=== PATIENT | male | born 1955 | race Caucasian/White ===

== ENCOUNTER 2017-06-22 14:49 | Inpatient (IN) | payer OTHER, MEDICARE ==
[~2017-06-22] VITALS: Ht 195.6 cm; Wt 135.0 kg
[2017-06-22] VITALS (12 sets, daily range): BP systolic 44–145; BP diastolic 23–106
[2017-06-22 15:18] LABS: HCO3 12.1 mmol/L (22.0-26.0); PO2 104.3 mmHg (75.0-100.0)
[2017-06-22 15:20] LABS: PCO2 79.9 mmHg (35.0-45.0); pH 6.799 (7.340-7.450)
[2017-06-22 15:24] LABS: HEMATOCRIT 45.3 % (42.0-52.0); MCV 98.1 fL (80.0-100.0); NUCLEATED RBCS 0 /100WBC; RBC 4.62 mil/uL (4.50-6.00); RDW-CV 13.4 % (10.5-14.5)
[2017-06-22 15:25] LABS: HEMOGLOBIN 14.9 gm/dL (14.0-18.0); MCH 32.3 pg (26.0-34.0); MCHC 32.9 g/dL (28.0-37.0); MPV 8.4 fl. (7.2-11.1); PLATELET COUNT* 187 thou/uL (150-400); WBC 7.8 thou/uL (4.0-11.0)
[2017-06-22 15:28] LABS: APTT 40.1 Seconds (25.0-31.3); INR 1.2; PROTIME 12.1 Seconds (9.20-11.50)
[2017-06-22 15:30] LABS: ANION GAP 20 mmol/L (7-16); BUN 26 mg/dL (7-18); CALCIUM 8.6 mg/dL (8.5-10.1); CHLORIDE 101 mmol/L (98-107); CO2 21 mmol/L (21-32); CREATININE 1.8 mg/dL (0.6-1.3); GLUCOSE 256 mg/dL (70-99); POTASSIUM 3.3 mmol/L (3.5-5.1); SODIUM 142 mmol/L (136-145)
[2017-06-22 15:36] LABS: ALBUMIN 3.2 g/dL (3.4-5.0); ALKALINE PHOSPHATASE 89 U/L (46-116); CHOLESTEROL 118 mg/dL (<200); HDL CHOLESTEROL 38 mg/dL (>40); LDL CHOLESTEROL 50 mg/dL (<100); MAGNESIUM 2.7 mg/dL (1.8-2.4); SGOT 250 U/L (15-37); SGPT 125 U/L (30-65); TC:HDL 3.1 Ratio (Not establshd); TOTAL BILIRUBIN 0.5 mg/dL (<0.1-1.0); TOTAL PROTEIN 6.7 g/dL (6.4-8.2); TRIGLYCERIDE 153 mg/dL (<150); VLDL 31 mg/dL (<40)
[2017-06-22 15:39] LABS: TROPONIN-I LEVEL 18.03 ng/mL (<0.06)
[2017-06-22 15:40] LABS: SERUM ASSESSMENT Clear
[2017-06-22 15:44] LABS: ABSOLUTE LYMPHOCYTES 3.3 thou/uL (0.8-5.3); ABSOLUTE MONOCYTES 1.1 thou/uL (0.0-1.2); ABSOLUTE NEUTROPHILS 3.4 thou/uL (1.6-8.1); ATYPICAL LYMPHS 1 %; LARGE PLATELETS OCCASIONAL; PLATELET ESTIMATE ADEQUATE
--- NOTE | 2017-06-22 15:51 | NUR ---
CODE ICE PROTOCOL STARTED AT THIS TIME.
--- NOTE | 2017-06-22 16:07 | NUR ---
EPI GTT STARTED AT 1530 AT 5MCG/MIN.
--- NOTE | 2017-06-22 16:43 | EKG ---
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 : 1955 Requested By: Daron Terrazas Order Number: [id number] MD: Mp Stone Measurements Intervals [place] Rate: 83 P: -25 MO: 159 QRS: 116 QRSD: 112 T: 95 QT: 368 QTc: 433 Interpretive Statements Sinus rhythm Incomplete right bundle branch block Inferior infarct, acute (RCA) Lateral leads are also involved Probable RV involvement, suggest recording right precordial leads No previous ECG available for comparison Electronically Signed On 06-22-2017 16:43:26 CDT by Mp Stone [email or web address] <ELECTRONICALLY SIGNED> By: Mp Stone MD, [facility] 06/22/17 1643 1454 1454 Mp Stone MD, [facility] /EPI
[2017-06-22 17:47] LABS: URINE BILIRUBIN NEGATIVE (Negative); URINE BLOOD 3+ (Negative); URINE CLARITY SL CLOUDY; URINE COLOR YELLOW; URINE GLUCOSE-RANDOM 1+ (Negative); URINE KETONES NEGATIVE (Negative); URINE LEUKOCYTES-REFLEX TRACE (Negative); URINE NITRITE-REFLEX NEGATIVE (Negative); URINE PROTEIN 3+ (Negative); URINE SPECIFIC GRAVITY 1.025 (1.005-1.030); URINE UROBILINOGEN 0.2 E.U./dl (0.2-1.0)
[2017-06-22 17:58] LABS: MUCUS 0-3 Light strn/LPF (None Seen); SQUAMOUS 0-3 Few /LPF (0-3); URINE WBC-REFLEX 6-15 Few /HPF (0-5)
[2017-06-22 17:59] LABS: AMORPHOUS PHOSPHATES Few /LPF (None Seen); HYALINE CASTS 0-3 Few /LPF (None Seen); WAXY CAST 0-3 Few /LPF (None Seen)
--- NOTE | 2017-06-22 18:47 | NUR ---
RECEIVED PT FROM ER. PT ON VENTILATOR. VENT SETTINGS: AC 16, FIO2 100, PEEP 5, TITAL VOLUME 750. PT COOL TO TOUCH. PUPILS 5CM AND FIXED. NO RESPONSE TO PAIN OR STIMULI. CODE ICE IN PRCOCESS. PT'S SYSTOLIC BP'S IN 130'S. TRACING SR WITH PVCS. EPI GTT DC'D PER ORDERS. FLUID BOLUS INFUSING. ANTIBIOTICS INFUSING. LEVO GTT HELD AT MOMENT PT'S BP'S MAINTAINING. MAP 100. SPOKE TO PULMONARY RECEIVED ORDERS.
[2017-06-22 18:51] LABS: BE -12.8 mmol/L (-2 to +3); HCO3 17.8 mmol/L (22.0-26.0); PO2 115.4 mmHg (75.0-100.0)
[2017-06-22 18:54] LABS: PCO2 60.2 mmHg (35.0-45.0); pH 7.088 (7.340-7.450)
--- NOTE | 2017-06-22 22:10 | NUR ---
SIGNIFICANT LEAK AROUND ETT CUFF CAUSING NEED TO OVERINFLATE CUFF TO MAINTAIN SEAL. PER DR THAO CHILDS FROM ER ON UNIT TO REPLACE ETT. AT 2200 AN 8.0 ETT WAS PLACED, POSITIONED 24CM @ LIP. PLACEMENT CONFIRMED VIA XRAY. OG REPOSITIONED AT THAT TIME TO 75CM ORIGINAL KUB SHOWED IT ABOVE STOMACH. FOLLOW UP KUB RECOMMENDED ADVANCING OG AN ADDITIONAL 3CM. OG CURRENTLY 78CM AT THE LIP, TAPED TO ETT.
[2017-06-23] VITALS (14 sets, daily range): BP systolic 94–147; BP diastolic 64–110
[2017-06-23 00:47] LABS: HEMATOCRIT 46.3 % (42.0-52.0); HEMOGLOBIN 15.1 gm/dL (14.0-18.0); MCHC 32.5 g/dL (28.0-37.0); MCV 98.4 fL (80.0-100.0); MPV 7.6 fl. (7.2-11.1); NUCLEATED RBCS 0 /100WBC; PLATELET COUNT* 212 thou/uL (150-400); RDW-CV 13.5 % (10.5-14.5)
[2017-06-23 00:49] LABS: WBC 28.9 thou/uL (4.0-11.0)
[2017-06-23 00:59] LABS: INR 1.3; PROTIME 13.4 Seconds (9.20-11.50)
[2017-06-23 01:01] LABS: CREATININE 1.9 mg/dL (0.6-1.3); MAGNESIUM 2.1 mg/dL (1.8-2.4); POTASSIUM 3.8 mmol/L (3.5-5.1)
[2017-06-23 01:12] LABS: PHOSPHORUS* 9.5 mg/dL (2.5-4.9)
[2017-06-23 01:30] LABS: ABSOLUTE LYMPHOCYTES 0.6 thou/uL (0.8-5.3); ABSOLUTE MONOCYTES 0.6 thou/uL (0.0-1.2); ABSOLUTE NEUTROPHILS 27.7 thou/uL (1.6-8.1); METAMYELOCYTES 1 %; PLATELET ESTIMATE ADEQUATE
[2017-06-23 01:31] LABS: LARGE PLATELETS OCCASIONAL; TOXIC GRANULATION 2+
[2017-06-23 01:32] LABS: ANISOCYTOSIS Occasional
--- NOTE | 2017-06-23 02:00 | NUR ---
ASSUMED PT CARE AT 1930, SEE REASSESSMENT. PUPILS FIXED AND DILATED, NO PAIN RESPONSE OR CORNEAL REFLEX. ARRIVED SHORTLY AFTER 1999 AND ADDITIONAL HISTORY INFORMATION OBTAINED. PT NOTED TO BE OVERBREATHING VENT SET RATE OF 16, RR 25-30, AND USING ACCESSORY MUSCLES DURING INHALATION GIVING THE OF GASPING @ 2100. PROPOFOL GTT INITIATED AT 2130 IN ATTEMPT TO DECREASE RR AND GASPING. APPROXIMATELY 2150 PT BECAME HYPOTENSIVE, LEVOPHED GTT INITIATED AND TITRATED TO MAX DOSE OF 30MCG/MIN. EPINEPHRINE GTT ADDED AT 2240 AND BP NORMALIZED. PROPOFOL GTT USED AT MINIMAL DOSAGE WHICH DID DECREASE RR AND ACCESSORY MUSCLE USE, LATER VERSED GTT OBTAINED AND WAS TITRATED THOUGH IT HAS BEEN LESS EFFECTIVE.
--- NOTE | 2017-06-23 03:01 | NUR ---
SPOKE TO DR TORRES ABOUT DROP IN CALCIUM LEVEL, REPLACEMENT ORDERED. DISCUSSED WITH HIM THAT SEDATION HAD BEEN INITIATED DUE TO RR OF 27-30, HOWEVER PROPOFOL HAD DROPPED BP AND VERSED GTT HAD NOT IMPROVED RR. PER DR TORRES, CALL PLACED TO DR HUBBARD TO NOTIFY OF THIS AND ASK IF FURTHER SEDATION WAS NEEDED. DR HUBBARD INSTRUCTED THAT OVERBREATHING VENT AT THIS POINT IS OK AND THAT VERSED GTT CAN BE TITRATED DOWN OR OFF IF PT REMAINS NON RESPONSIVE. VERSED GTT CURRENTLY AT 1MG/HR, RR 23 AND MILD HEAD EXTENSION NOTED WITH EACH BREATH. OTHERWISE PT IS MOTIONLESS, NO RESPONSE TO PAINFUL STIMULI. PUPILS SMALL THEN PREVIOUS ASSESSMENTS, CURRENTLY 4MM AND MINIMALLY REACTIVE TO LIGHT.
[2017-06-23 03:44] LABS: BE -18.3 mmol/L (-2 to +3); HCO3 12.3 mmol/L (22.0-26.0); PCO2 46.9 mmHg (35.0-45.0); PO2 67.5 mmHg (75.0-100.0)
[2017-06-23 03:46] LABS: pH 7.038 (7.340-7.450)
--- NOTE | 2017-06-23 04:10 | NUR ---
PT DESATING TO MID 80'S, NO CHANGE WITH REPOSITIONING AND SUCTIONING OF ETT. IV LASIX 40MG GIVEN @ 0115 DUE TO COARSE LUNG SOUNDS, UO 350ML SINCE GIVEN. STAT CXR AND ABG'S OBTAINED, CALLED TO DR HUBBARD. ORDER RECEIVED TO INCREASE PEEP TO 8, RT ON UNIT AND INFORMED. ORDER FOR BICARB REPLACEMENT RECEIVED.
[2017-06-23 04:15] LABS: ABSOLUTE BASOPHILS 0.1 thou/uL (0.0-0.2); ABSOLUTE LYMPHOCYTES 0.6 thou/uL (0.8-5.3); ABSOLUTE MONOCYTES 0.8 thou/uL (0.0-1.2); ABSOLUTE NEUTROPHILS 27.9 thou/uL (1.6-8.1); BASOPHILS 0.2 %; HEMATOCRIT 46.3 % (42.0-52.0); HEMOGLOBIN 15.2 gm/dL (14.0-18.0); LYMPHOCYTES 2.1 %; MCH 31.8 pg (26.0-34.0); MCHC 32.8 g/dL (28.0-37.0); MCV 97.2 fL (80.0-100.0); MONOCYTES 2.7 %; MPV 7.6 fl. (7.2-11.1); NUCLEATED RBCS 0 /100WBC; PLATELET COUNT* 213 thou/uL (150-400); RBC 4.76 mil/uL (4.50-6.00); RDW-CV 13.4 % (10.5-14.5); WBC 29.4 thou/uL (4.0-11.0)
[2017-06-23 04:44] LABS: ALBUMIN 2.9 g/dL (3.4-5.0); POTASSIUM 3.7 mmol/L (3.5-5.1); TOTAL BILIRUBIN 0.9 mg/dL (<0.1-1.0); TOTAL PROTEIN 6.2 g/dL (6.4-8.2)
--- NOTE | 2017-06-23 04:59 | NUR ---
[facility] CALLED- REF#[id number] REQUESTED THAT RN CALL WITH ANY CHANGES TO STATUS OR PLAN OF CARE.
[2017-06-23 05:21] LABS: TROPONIN-I LEVEL 65.21 ng/mL (<0.06)
--- NOTE | 2017-06-23 06:34 | NUR ---
PT REMAINS NON RESPONSIVE ON VENTILATOR. PRESSORS AND VERSED TITRATED OFF APPROXIMATELY 0430. PT CURRENTLY NORMOTENSIVE. CONTINUES TO SHOW USE OF ACCESSORY MUSCLES. NO PAIN RESPONSE OR CORNEAL REFLEX, DEEP GAG REFLEX INTACT, PT COUGHS WHEN DEEP INLINE SUCTIONING. PUPILS REMAIN 4MM, VERY SLUGGISH BUT WHEN LIGHT IS HELD TO PUPILS FOR SEVERAL SECONDS THEY WILL NOTICABLY CONSTRICT TO APPROXIMATELY 3MM. SCD'S OFF AT THIS TIME DUE TO CODE ICE. TARGET TEMP OF 91.4F OBTAINED AT 2044, THOUGH IT HAS FLUCTUATED SLIGHTLY ABOVE INTERMITTENTLY. PT HAS BEEN TURNED Q2HR.
[2017-06-23 10:48] LABS: HCO3 21.7 mmol/L (22.0-26.0); PCO2 83.1 mmHg (35.0-45.0); PO2 84.1 mmHg (75.0-100.0); pH 7.035 (7.340-7.450)
[2017-06-23 11:00] LABS: ABSOLUTE BASOPHILS 0.1 thou/uL (0.0-0.2); ABSOLUTE LYMPHOCYTES 0.7 thou/uL (0.8-5.3); ABSOLUTE MONOCYTES 0.8 thou/uL (0.0-1.2); ABSOLUTE NEUTROPHILS 20.4 thou/uL (1.6-8.1); BASOPHILS 0.4 %; HEMOGLOBIN 14.8 gm/dL (14.0-18.0); LYMPHOCYTES 3.2 %; MCH 31.8 pg (26.0-34.0); MCHC 32.9 g/dL (28.0-37.0); MCV 96.8 fL (80.0-100.0); MONOCYTES 3.5 %; MPV 7.6 fl. (7.2-11.1); NUCLEATED RBCS 0 /100WBC; PLATELET COUNT* 182 thou/uL (150-400); POLYS 92.9 %; RBC 4.65 mil/uL (4.50-6.00)
[2017-06-23 11:06] LABS: CREATININE 2.3 mg/dL (0.6-1.3); POTASSIUM 3.5 mmol/L (3.5-5.1)
[2017-06-23 11:16] LABS: ALBUMIN 2.6 g/dL (3.4-5.0); PHOSPHORUS* 8.5 mg/dL (2.5-4.9); TOTAL BILIRUBIN 0.7 mg/dL (<0.1-1.0); TOTAL PROTEIN 5.7 g/dL (6.4-8.2)
[2017-06-23 12:11] LABS: BE -13.2 mmol/L (-2 to +3); HCO3 17.3 mmol/L (22.0-26.0); PO2 74.6 mmHg (75.0-100.0)
[2017-06-23 12:12] LABS: PCO2 58.2 mmHg (35.0-45.0)
[2017-06-23 17:10] LABS: BE -11.6 mmol/L (-2 to +3); HCO3 17.8 mmol/L (22.0-26.0)
[2017-06-23 17:11] LABS: PCO2 53.7 mmHg (35.0-45.0); pH 7.139 (7.340-7.450)
--- NOTE | 2017-06-23 17:24 | 2DMMODE ---
[place] [address] 2 D/M-MODE ECHOCARDIOGRAM Name: SARAI MEJIA Room: [address] IN [facility]#: [id number] Admission: 06/22/17 Attend Phys: Donte Cabrera, Discharge: Date of : 57 Date of Service: 06/23/17 1724 Report #: [id number] THIS REPORT FOR: //name// APPROVED REPORT Study performed: 06/23/2017 09:58:40 EXAM: Comprehensive 2D, Doppler, and color-flow Echocardiogram Patient Location: In-Patient Room #: 006 Status: routine BSA: 2.36 HR: 67 bpm BP: 127/74 mmHg Rhythm: NSR Other Information Study Quality: Good Indications cardiac arrrest 2D Dimensions LVEF(%): 75.63 (>50%) IVSd: 10.20 (7-11mm) LVOT Diam: 19.88 (18-24mm) LVDd: 31.45 mm PWd: 9.72 (7-11mm) LVDs: 17.89 (25-40mm) Aortic Root: 41.22 mm White's LVEF: 75.63 % Aortic Valve AoV Peak Kp.: 0.90 m/s AO Peak Gr.: 3.23 mmHg LVOT Max P.14 mmHg AO Mean Gr.: 1.80 mmHg LVOT Mean P.01 mmHg LVOT Max V: 1.02 m/s AO V2 VTI: 11.05 cm LVOT Mean V: 0.65 m/s RYAN (VTI): 4.22 cm2 LVOT V1 VTI: 15.04 cm Mitral Valve E/A Ratio: 0.78 MV Decel. Time: 256.92 ms MV E Max Kp.: 0.41 m/s MV PHT: 74.51 ms MVA (PHT): 2.95 cm2 [place] [address] 2 D/M-MODE ECHOCARDIOGRAM Name: SARAI MEJIA Room: [address] IN .R.#: [id number] Admission: 06/22/17 Attend Phys: Donte Cabrera, Discharge: Date of : 57 Date of Service: 06/23/17 1724 Report #: [id number] TDI E/Lateral E': 5.13 E/Medial E': 5.86 Medial E' Kp.: 0.07 m/s Lateral E' Kp.: 0.08 m/s Tricuspid Valve TR Peak Gr.: 23.43 mmHg RVSP: 28.00 mmHg Left Ventricle The left ventricle is normal size. There is normal LV segmental wall motion. There is normal left ventricular wall thickness. Left ventricular systolic function is normal. The left ventricular ejection fraction is within the normal range. LVEF is 55%. Right Ventricle Right ventricle is mild to moderately dilated. The right ventricular systolic function is normal. Atria The left atrium size is normal. Right atrium is moderately dilated. Aortic Valve Mild aortic valve sclerosis. No aortic regurgitation is present. There is no aortic valvular stenosis. Mitral Valve The mitral valve is normal in structure. There is no mitral valve regurgitation noted. No evidence of mitral valve stenosis. Tricuspid Valve The tricuspid valve is normal in structure. There is no tricuspid valve regurgitation noted. Pulmonic Valve The pulmonary valve is normal in structure. There is no pulmonic valvular regurgitation. Great Vessels The aortic root is normal in size. IVC is dilated and collapses <50% with inspiration. Pericardium There is no peric[place] [address] 2 D/M-MODE ECHOCARDIOGRAM Name: SARAI MEJIA Room: [address] IN [facility]#: [id number] Admission: 06/22/17 Attend Phys: Donte Cabrera, Discharge: Date of : 57 Date of Service: 06/23/17 1724 Report #: [id number] <Conclusion> There is normal left ventricular wall thickness. Left ventricular systolic function is normal. The left ventricular ejection fraction is within the normal range. LVEF is 55%. Right ventricle is mild to moderately dilated. The left atrium size is normal. Right atrium is moderately dilated. Mild aortic valve sclerosis. No aortic regurgitation is present. There is no aortic valvular stenosis. The mitral valve is normal in structure. There is no mitral valve regurgitation noted. The tricuspid valve is normal in structure. IVC is dilated and collapses <50% with inspiration. There is no pericardial effusion. There is normal LV segmental wall motion. <ELECTRONICALLY SIGNED> By: Mp Stone MD, FACC 06/23/171723 23 23 Mp Stone MD, FACC /INF
--- NOTE | 2017-06-23 19:43 | NUR ---
RECIEVED REPORT FROM [facility]. ASSESMENTS CHARTED. AFEBRILE. CODE ICE. NON RESPONSIVE. REWARMING BEGAN AROUND 1500. LEVO STARTED AND THEN STOPPED THIS AFTERNOON. STILL INTUBATED. CALLED PHYSICAN ABOUT CHANGE IN LUNG SOUNDS. NO ORDERS GIVEN. LOW URINE OUTPUT. OG TO LIS. SODIUM BICARB GTT. FENTNANYL AND VERSED GTT INFUSING PER ICU PROTOCOL. ANTIBIOTICS GIVEN. ECHO TODAY. NEURO SAW PT. NEPHRO AND ID CONSULTED AND CALLED. FAMILY UPDATED ON PLAN OF CARE.
[2017-06-24] VITALS (14 sets, daily range): BP systolic 82–113; BP diastolic 51–75
[2017-06-24 02:48] LABS: ABSOLUTE LYMPHOCYTES 0.5 thou/uL (0.8-5.3); ABSOLUTE MONOCYTES 0.3 thou/uL (0.0-1.2); ABSOLUTE NEUTROPHILS 12.1 thou/uL (1.6-8.1); BASOPHILS 0.2 %; HEMATOCRIT 42.2 % (42.0-52.0); HEMOGLOBIN 14.1 gm/dL (14.0-18.0); MCH 31.7 pg (26.0-34.0); MCHC 33.5 g/dL (28.0-37.0); MCV 94.7 fL (80.0-100.0); MONOCYTES 2.4 %; MPV 7.6 fl. (7.2-11.1); NUCLEATED RBCS 0 /100WBC; PLATELET COUNT* 118 thou/uL (150-400); POLYS 93.4 %; RBC 4.45 mil/uL (4.50-6.00); WBC 12.9 thou/uL (4.0-11.0)
[2017-06-24 03:01] LABS: PREALBUMIN 15.5 mg/dL (18.0-35.7)
[2017-06-24 03:13] LABS: ALBUMIN 2.5 g/dL (3.4-5.0); CALCIUM 6.9 mg/dL (8.5-10.1); MAGNESIUM 1.7 mg/dL (1.8-2.4); POTASSIUM 3.7 mmol/L (3.5-5.1); TOTAL PROTEIN 5.4 g/dL (6.4-8.2)
--- NOTE | 2017-06-24 07:20 | NUR ---
PT REMAINS NON RESPONSIVE ON VENTILATOR. COUGH REFLEX INTACT, NO GAG OR CORNEAL REFLEX DETECTED. LEVOPHED GTT TITRATED TO MAINTAIN MAP >65. VERSED AND FENTANYL GTTS TITRATED TO PROMOTE VENTILATOR EFFICACY. PARTIAL BED BATH GIVEN, NO REDNESS NOTED TO COCCYX OR BUTTOCKS. PT REWARMED, GOAL TEMP OF 97.7 OBTAINED AT 0400, THOUGH TEMP HAS FLUCTUATED BETWEEN 96.6 AND 97.7 SINCE THAT TIME. PT HAS BEEN TURNED Q2HR THROUGHOUT THE SHIFT.
[2017-06-24 07:59] LABS: BE -7.9 mmol/L (-2 to +3); HCO3 20.1 mmol/L (22.0-26.0); PCO2 50.5 mmHg (35.0-45.0); PO2 66.7 mmHg (75.0-100.0); pH 7.217 (7.340-7.450)
--- NOTE | 2017-06-24 08:00 | NUR ---
Assumed care of patient remains on vent temp returning to normal range. decreasing sedation and pressor. See flow sheet.
--- NOTE | 2017-06-24 10:54 | NUR ---
CM SPOKE TO THE PATIENTS SPOUSE AT THE BEDSIDE TO DISCUSS THE PATIENT AND ANY QUESTIONS OR CONCERNS THAT SHE MAY HAVE. PATIENTS SPOUSE INFOMRS THAT PRIOR TO ADMISSION PATIENT WAS INDEPENDENT AND ACTIVE. PATIENT HAS A LONG HEALTH HX AND HAS HAD 3 BRAIN SURGERIES IN THE PAST AND HAD PREVIOUSLY MENTIONED 'NEVER HAVING SURGERY AGAIN'. PATIENT WAS A HEAVY SMOKER OF 2 PACKS PER DAY, AND DRANK ALCOHOL DAILY. USUALLY 2-6 CANS OF BEER DAILY. PATIENTS SPOUSE INFORMS THAT THE PATIENT WILL HAVE AN EGD TODAY AND SHE WILL DISCUSS WITH EXTENDED FAMILY MEMBERS ABOUT THE NEXTS STEPS IN THE PATIENTS POC. CM WILL REMAIN AVAILABLE TO ASSIST AND FOLLOW NEEDED.
--- NOTE | 2017-06-24 12:21 | NUR ---
ICU ROUNDING: CM SPOKE TO THE RN IN-CHARGE OF THE PATIENT AND HE INFORMS THAT THE PATIENT IS REWARMING. PATIENT NOT PRODUCING URINE. PATIENT SCHEDULED TO HAVE AN EGD TODAY. PATIENTS SPOUSE CURRENTLY AT THE BEDSIDE. CM WILL REMAIN AVIALABLE TO ASSIST AND FOLLOW NEEDED.
--- NOTE | 2017-06-24 13:42 | CON ---
[facility] [address] [place] [address] CONSULTATION Name: SARAI MEJIA Room: [address] IN M.R.#: [id number] Admission: 06/22/17 Attend Phys: Donte Cabrera MD Discharge: Date of : 57 Report #: [id number] THIS REPORT FOR: //name// CC: [facility] DATE OF SERVICE: 06/23/2017 Consult has been requested by Dr. Cabrera. INDICATION FOR CONSULTATION: Acute hypoxemic respiratory failure secondary to cardiac arrest. HISTORY OF PRESENT ILLNESS: This is a 62-year-old gentleman with past medical history that includes a history of a EARTH BURNER shunt, full details regarding his previous brain/neurological illness not available. The patient's says that at one point he has had a CSF leak into his paranasal sinus. The patient does have a history of heavy alcohol intake, usually drinks about 6-pack of beer a day, at times up to a 12 pack. The patient is an active smoker as well. The patient does not have a history of a cardiac or respiratory disease previously diagnosed except he has a history consistent with peripheral vascular disease. The patient has been driving all the way from [place]. His , today, found him face down in their mobile home. She tried to straighten him, to do CPR; however, she was not able to, EMS was immediately called who found him in ventricular fibrillation. The patient had spontaneous circulation returning after about 30 minutes. There is marked elevation in troponin I, consistent with an acute myocardial infarction. The patient at this time has fixed and dilated pupils. He essentially appears to be unresponsive neurologically; however, the patient is significantly overbreathing the ventilator at this time. The patient initially was reported to be hypotensive. At this time, however, although his blood pressure is on the lower side, he is not on pressors. He has been fluid resuscitated. He is making some urine. He does appear to be in acute renal failure. The patient is severely acidotic with a pH of 7.0, performed around 3:00 this morning. The patient is currently maintaining oxygenation; however, he is on 100% FiO2 with 8 of PEEP with assist control mode of ventilation. The patient is on the ventilator. He is also minimally responsive as mentioned above and therefore is unable to provide a further history or review of systems. PAST MEDICAL HISTORY: Neurologic disease including hydrocephalus with history of EARTH BURNER shunt with subsequent leakage into what appears to be a paranasal sinus, complete details not available at this time. I do not have a measure of his left ventricular ejection fraction. I do not have previous PFTs available [place] [address] CONSULTATION Name: SARAI MEJIA Room: [address] IN M.R.#: [id number] Admission: 06/22/17 Attend Phys: Donte Cabrera MD Discharge: Date of : 57 Report #: [id number] SOCIAL HISTORY: Heavy smoker up to 2 packs a day, has been smoking for several decades. Also, history of heavy alcohol intake, at least a 6-pack of beer a day, at times a 12-pack. No known history of illegal drug use. FAMILY HISTORY: Both parents had coronary artery disease. CURRENT MEDICATIONS: The list is in [employer], reviewed. HOME MEDICATIONS: List is unknown. ALLERGIES: No known drug allergies. PHYSICAL EXAMINATION: GENERAL: The patient is unresponsive except that he is overbreathing the ventilator. VITAL SIGNS: He has a pulse of 77 and blood pressure of 108/82. He is on assist control mode of ventilation. Tidal volume is set at 650 with an AC rate of 16, FiO2 is 100%, PEEP is 8. The patient is breathing at 22. He is on code ICE. His temperature is 33.9. He is saturating 96%. HEENT: Head is normocephalic and atraumatic. He appears to be cold and clammy as expected. His pupils are fixed and dilated. There is an endotracheal tube, which appears to be in good position. NECK: Does not show raised JVP, asymmetry, mass or lymph node. He does have a central line in place. CHEST: Symmetrical expansion on inspection and palpation. On auscultation, there are marked rales noted throughout all lung weston. HEART: Regular. There is no murmur. ABDOMEN: Soft and nontender. LOWER EXTREMITIES: Cold and clammy. There are changes in lower extremities consistent with significant previous peripheral vascular disease. NEUROLOGIC: Completely unresponsive to painful stimuli except he is overbreathing the ventilator. LABORATORY DATA: The patient's chest x-ray is reviewed. There are bilateral infiltrative changes, more on the left than the right noted. There is atelectasis at the right lung base as well. The patient's arterial blood gases consistent with acute hypoxemic/hypercarbic respiratory failure, in addition to severe metabolic as well as respiratory acidosis with a pH of 7.038, this is in [facility]. I reviewed the patient's lab work, which is consistent with acute renal failure and [facility] reviewed. The patient's CBC also in [facility] reviewed. ASSESSMENT AND PLAN: 1. 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 The patient is currently on code ICE. Unfortunately, it appears that here the patient has had severe anoxic [facility] [address] [place] [address] CONSULTATION Name: SARAI MEJIA Room: [address] IN M.R.#: [id number] Admission: 06/22/17 Attend Phys: Donte Cabrera MD Discharge: Date of : 57 Report #: [id number] injury. He does still have brain function though at this time. The patient unfortunately has a poor prognosis at this time. It is noted that he is no-code for a cardiac arrest. The Neurology service has been consulted. 2. Acute hypoxemic/hypercarbic respiratory failure. I recommend placing an A-line as long as the patient's blood pressure is able to tolerate. We will give him sedation to improve ventilation. We will follow arterial blood gases and then adjust the ventilator accordingly. While I was dictating this report, the patient dropped blood pressure, now only has a barely palpable femoral pulse; therefore, I have ordered norepinephrine to be started. We will go ahead and give him some sodium bicarbonate by IV push as well at this time. 3. Pulmonary infiltrates/suspected aspiration. The patient is on broad-spectrum antibiotics and I agree with the same. 4. Severe metabolic acidosis with acute renal failure. We will repeat labs as well as arterial blood gases at this time and then adjust fluids. Plan to continue with bicarbonate infusion. 5. Acute myocardial infarction. The Cardiology service is on the case. 6. History of hydrocephalus. Discussion as above. 7. History of heavy alcohol intake. We will add thiamine and folate. We will watch for withdrawal should the patient's condition improve. 8. History of smoking. The patient is on hydrocortisone, also on DuoNebs. We will continue and make no change at this time. The patient obviously is critically ill at this time. Total time spent providing critical care to this patient today is 50 minutes. <ELECTRONICALLY SIGNED> By: Huseyin Perla MD 06/24/17 1342 1036 1200Huseyin Perla MD /nt
[2017-06-24] MEDS ORDERED: SERTRALINE HCL50 MG PO (13:57)
[2017-06-24] MEDS ORDERED: HYDROCHLOROTHIA25 M2 PO (14:00)
[2017-06-24] MEDS ORDERED: ZOCOR20 MG PO (14:01)
--- NOTE | 2017-06-24 15:01 | NUR ---
Patient remains on vent. Assesed by MTN. Sedation restarted per Pan. levo restartted. Turned q2.
[2017-06-24 15:39] LABS: BE -3.9 mmol/L (-2 to +3); HCO3 19.7 mmol/L (22.0-26.0); PO2 80.2 mmHg (75.0-100.0); pH 7.408 (7.340-7.450)
--- NOTE | 2017-06-24 18:35 | NUR ---
PATIENT REMAINS ON VENT LEVOPHED AT 8MCG. TURNED Q 2 HOURS. SEE FLOW SHEET
[2017-06-25] VITALS (21 sets, daily range): BP systolic 86–130; BP diastolic 52–83
[2017-06-25 04:11] LABS: ABSOLUTE LYMPHOCYTES 0.6 thou/uL (0.8-5.3); HEMATOCRIT 35.4 % (42.0-52.0); NUCLEATED RBCS 0 /100WBC
[2017-06-25 04:13] LABS: ABSOLUTE MONOCYTES 0.4 thou/uL (0.0-1.2); ABSOLUTE NEUTROPHILS 14.6 thou/uL (1.6-8.1); BASOPHILS 0.1 %; HEMOGLOBIN 12.2 gm/dL (14.0-18.0); LYMPHOCYTES 3.8 %; MCHC 34.6 g/dL (28.0-37.0); MCV 92.4 fL (80.0-100.0); MONOCYTES 2.5 %; MPV 8.9 fl. (7.2-11.1); PLATELET COUNT* 103 thou/uL (150-400); POLYS 93.6 %; RBC 3.83 mil/uL (4.50-6.00); RDW-CV 13.2 % (10.5-14.5); WBC 15.6 thou/uL (4.0-11.0)
[2017-06-25 04:25] LABS: ALBUMIN 2.1 g/dL (3.4-5.0); CALCIUM 6.9 mg/dL (8.5-10.1); MAGNESIUM 1.7 mg/dL (1.8-2.4); POTASSIUM 3.4 mmol/L (3.5-5.1); TOTAL BILIRUBIN 0.8 mg/dL (<0.1-1.0); TOTAL PROTEIN 5.2 g/dL (6.4-8.2)
[2017-06-25 04:31] LABS: CREATININE 4.9 mg/dL (0.6-1.3)
[2017-06-25 04:50] LABS: PREALBUMIN 13.3 mg/dL (18.0-35.7)
--- NOTE | 2017-06-25 06:07 | NUR ---
PT CONTINUED ON VENTILATOR POST CARDIAC ARREST, CODE ICE. PT'S CORE TEMP 98.6 - 98.8 DURING SHIFT. P ON IV LEVOPHED TO MAINTAIN MAP >65. PT HAS POSITIVE PUPILARY RESONSE. OCCAISIONAL POSITIVE COUGH REFLEX. NO GAG REFLEX. NO RESPONSE TO PAINFULL OR NOXIOUS STIMULI. NO BABINSKI REFLEX. PUPILS ARE 2MM AND SLUGGISH. IV SEDATION STOPPED AT 0300 FOR SEDATION VACATION. SEDATION REMAINS OFF AT THIS TIME. NO CHANGE IN NEURO STATUS. NO POSTURING NOTED, NO RESTRAINTS IN USE. PT REMAINS HEMODYNAMICALLY STABLE AND AFEBRILE, WILL CONTINUE TO MONITOR.
[2017-06-25 12:02] LABS: BE -1.4 mmol/L (-2 to +3); HCO3 22.9 mmol/L (22.0-26.0); PCO2 37.1 mmHg (35.0-45.0); pH 7.408 (7.340-7.450)
[2017-06-25 12:04] LABS: PO2 58.2 mmHg (75.0-100.0)
--- NOTE | 2017-06-25 12:47 | NUR ---
PATIENT REMAINS ON VENT EEG DONE DIALYSIS RECOMENDED. PT MORE ACTIVE OFF SEDATION. DIALYSIS ORDRERD LINE PLACED BY DR LOVE READY FOR USE.
[2017-06-25 17:05] LABS: BE -2.1 mmol/L (-2 to +3); HCO3 21.6 mmol/L (22.0-26.0); PCO2 33.1 mmHg (35.0-45.0); PO2 63.6 mmHg (75.0-100.0); pH 7.433 (7.340-7.450)
--- NOTE | 2017-06-25 18:44 | NUR ---
PATIENT REMAINS ON VENT AWAITING DIALYSIS. FAMILY HOME PT TURNED Q 2 HOURS.
--- NOTE | 2017-06-25 21:41 | NUR ---
INITAL ASSESSMENT COMPLETED AT 1920. PT INTUBATED AND SEDATED ON VENTILATOR HEMO DIALYSIS STARTED AT 2014.
--- NOTE | 2017-06-25 22:38 | NUR ---
PT RECIEVED DIALYSIS X2 HRS. NO FLUID REMOVED DURING TREATENT. PT TO BE DIALYSED AGAIN IN AM.
[2017-06-26] VITALS (23 sets, daily range): BP systolic 98–128; BP diastolic 64–88
[2017-06-26 02:06] LABS: HEPATITIS B SURFACE AG Negative (Negative)
[2017-06-26 03:48] LABS: HEMATOCRIT 33.6 % (42.0-52.0); HEMOGLOBIN 11.6 gm/dL (14.0-18.0); MCH 31.9 pg (26.0-34.0); MCHC 34.5 g/dL (28.0-37.0); MCV 92.7 fL (80.0-100.0); MPV 8.8 fl. (7.2-11.1); NUCLEATED RBCS 0 /100WBC; PLATELET COUNT* 108 thou/uL (150-400); RBC 3.63 mil/uL (4.50-6.00); RDW-CV 13.2 % (10.5-14.5); WBC 21.7 thou/uL (4.0-11.0)
[2017-06-26 04:22] LABS: ALBUMIN 2.2 g/dL (3.4-5.0); CALCIUM 7.5 mg/dL (8.5-10.1); CREATININE 5.6 mg/dL (0.6-1.3); MAGNESIUM 2.2 mg/dL (1.8-2.4); POTASSIUM 3.8 mmol/L (3.5-5.1)
[2017-06-26 06:26] LABS: ABSOLUTE LYMPHOCYTES 0.9 thou/uL (0.8-5.3); ABSOLUTE MONOCYTES 0.4 thou/uL (0.0-1.2); ABSOLUTE NEUTROPHILS 20.4 thou/uL (1.6-8.1); PLATELET ESTIMATE ADEQUATE
[2017-06-26 08:29] LABS: BE -1.8 mmol/L (-2 to +3); HCO3 21.6 mmol/L (22.0-26.0); PCO2 32.7 mmHg (35.0-45.0); PO2 73.1 mmHg (75.0-100.0); pH 7.438 (7.340-7.450)
--- NOTE | 2017-06-26 10:15 | OP ---
[facility] [address] [place] [address] OPERATIVE REPORT Name: SARAI MEJIA Room: [address] IN M.R.#: [id number] Admission: 06/22/17 Attend Phys: Donte Cabrera MD Discharge: Date of : 57 Report #: [id number] THIS REPORT FOR: //name// [facility] DATE OF SERVICE: 06/25/2017 PREOPERATIVE DIAGNOSIS: Need for urgent dialysis. POSTOPERATIVE DIAGNOSIS: Need for urgent dialysis. PROCEDURE: Temporary dialysis catheter at the bedside. SURGEON: Daron Henderson MD CHEMICAL MAKER: None. ANESTHESIA: Local. The patient is intubated and sedated. COMPLICATIONS: None. ESTIMATED BLOOD LOSS: Minimal. INDICATIONS FOR PROCEDURE: The patient is a 62-year-old white male who is a code ice after heart attack. He needs urgent dialysis. I have been asked to place tunneled dialysis catheter. Informed consent was obtained from his with risks including but not limited to bleeding, infection, need for further surgery, pain, , heart attack, stroke, pneumothorax. She understood these risks and agreeable to proceed. DESCRIPTION OF PROCEDURE: At the patient's bedside left neck and chest were prepped and draped in usual sterile fashion. Under ultrasound guidance, without an image saved, I cannulated the left internal jugular vein without difficulty. I used Seldinger technique to exchange out for sequential dilator and then the catheter, which was 20 cm in length. I secured the catheter in place with a silk stitch. Both ports flushed without difficulty. I packed the catheter with 1000 unit per mL heparin. I dressed it in standard fashion. The patient tolerated the procedure well. Portable chest x-ray is pending. <ELECTRONICALLY SIGNED> By: Daron Henderson MD 06/26/17 1015 1134 [id number] Henderson MD /nt
--- NOTE | 2017-06-26 10:17 | CON ---
[facility] [address] [place] [address] CONSULTATION Name: SARAI MEJIA Room: [address] IN M.R.#: [id number] Admission: 06/22/17 Attend Phys: Donte Cabrera MD Discharge: Date of : 57 Report #: [id number] THIS REPORT FOR: //name// CC: Donte [place] OF SERVICE: 06/25/2017 REQUESTING PHYSICIAN: Donte Cabrera M.D. REASON FOR CONSULTATION: Emergent dialysis needed. HISTORY OF PRESENT ILLNESS: The patient is a 62-year-old white male, visiting [place] from [place] who was found down. He is a code ice. He has been slowly recovering. He will need dialysis. I have been asked to place an emergent temporary dialysis catheter at the bedside. REVIEW OF SYSTEMS: A 12-point review of systems unobtainable due to the patient's condition. PAST MEDICAL HISTORY: Significant for multiple brain surgeries and brain shunt. Acute VA, cardiac arrest. SOCIAL HISTORY: Unknown due to the patient's condition. PHYSICAL EXAMINATION: GENERAL: The patient is intubated and sedated on the ventilator. HEENT: Normocephalic, atraumatic. NECK: Supple. HEART: Regular. LUNGS: Clear. ABDOMEN: Soft. EXTREMITIES: Warm. NEUROLOGIC: Unobtainable. ASSESSMENT: Needs urgent dialysis. PLAN: We will place temporary dialysis catheter at bedside today. <ELECTRONICALLY SIGNED> By: Daron Henderson MD 06/26/17 1017 1132 [id number] Henderson MD /nt
--- NOTE | 2017-06-26 10:59 | CON ---
[facility] [address] [place] [address] CONSULTATION Name: SARAI MEJIA Room: [address] IN M.R.#: [id number] Admission: 06/22/17 Attend Phys: Donte Cabrera MD Discharge: Date of : 57 Report #: [id number] THIS REPORT FOR: //name// CC: Donte Fernández CARDIOLOGY CONSULTATION INDICATION: Cardiac arrest. HISTORY OF PRESENT ILLNESS: The patient is a 62-year-old gentleman who was admitted to the hospital on 06/22/2017 after an kbk-al-ovooodfs arrest. His found him unresponsive after arriving to the [facility] from [place]. They had been traveling by mobile home. He had been cleaning out the mobile home where he was found. EMS was summoned immediately and CPR began within 5 minutes. The patient was resuscitated in the field and brought to the Emergency Room. Initial EKG showed ST elevation in the inferior leads. The patient was intubated in the field. He was placed on pressor agents for blood pressure support. He has been recovering in the Intensive Care Unit. He underwent ice protocol for the first 24 hours of admission. Presently, he remains intubated. He is sedated and thus unresponsive. Vital signs have stabilized and he is now off pressors. An echocardiogram performed on the day after admission shows an ejection fraction of 55%. Focal wall motion abnormalities were not appreciated. Right ventricle appeared cxeg-yl-gijmrkyuid dilated. The right atrium appeared moderately dilated. Initial troponin was 18.03. Subsequent troponin was 65.21. PAST MEDICAL HISTORY: 1. Hydrocephalus. 2. Chronic tobacco abuse. 3. Hyperlipidemia. 4. Hypertension. 5. Family history of coronary artery disease. PAST SURGICAL HISTORY: Four brain surgeries for shunt for hydrocephalus. FAMILY HISTORY: The patient's father of a heart attack at older age. The patient's mother is alive. She has a pacemaker. The patient's brother with an aneurysm. SOCIAL HISTORY: The patient is , retired. Drinks alcohol occasionally, smokes 2 packs of cigarettes daily. ALLERGIES: None. MEDICATIONS: Medications at home included a blood pressure medicine, [place] [address] CONSULTATION Name: SARAI MEJIA Room: [address]#: [id number] Admission: 06/22/17 Attend Phys: Donte Cabrera MD Discharge: Date of : 57 Report #: [id number] for depression and a medicine for cholesterol. REVIEW OF SYSTEMS: A 14-point review of systems, according to the , reveals that he wears glasses, but no other significant complaints. PHYSICAL EXAMINATION: VITAL SIGNS: Presently, blood pressure 108/63, pulse 91 and regular. GENERAL: This is a moderately obese white male, who is intubated and sedated. HEENT: Head is normocephalic, atraumatic. NECK: Examination of the neck reveals a thick neck, without obvious jugular venous distention. CHEST: Reveals diffuse expiratory wheezes throughout. CARDIAC EXAMINATION: Regular rhythm, without gallop or murmur. ABDOMEN: Examination of the abdomen reveals normal bowel sounds. The abdomen is soft. EXTREMITIES: Examination of the extremities shows diminished pulses. Toes are dark in coloration. SKIN: Warm and dry. IMPRESSION AND RECOMMENDATIONS: 1. Phn-uw-xmkhasnq arrest, likely due to cardiac arrhythmia in the setting of acute myocardial infarction. Rhythm is now stable. We will follow clinically at this point in time. 2. Coronary artery disease. Formal evaluation pending recovery from his ryb-ab-ixgnhvow arrest. 3. Hyperlipidemia. We will resume statin agent if the patient recovers and begins taking p.o. medications. 4. Hypertension. Blood pressure low normal presently off of medication. We will follow clinically. 5. Tobacco abuse. Should the patient recover, we will recommend cessation. <ELECTRONICALLY SIGNED> By: Leighton Thurston MD, FACC 06/26/17 1059 1315 [id number] Thurston MD, FACC /nt
--- NOTE | 2017-06-26 18:43 | NUR ---
ASSUMED CARE OF PATIENT AT 1400, AGREEMENT WITH PREVIOUS NURSE 1200 ASSESSMENT. PATIENT REMAINS SEDATED ON VENTILATOR. NO CHANGE IN PATIENT STATUS TODAY. ON PROPOFOL AND FENTANYL GTT FOR SEDATION. ALL REFLEXES INTACT. TRACES SINUS ELIZABETH TO NSR ON RESIDENTIAL MONITOR. NO VASOPRESSORS NOTED. PROTONIX GTT GOING FOR GI BLEED. SCANT BLOODY SECRETIONS FROM NG TUBE. EGD SCHEDULED FOR TOMORROW BY DR PRASAD. CONSENT SIGNED. NIFEDIPINE HELD X2 FOR SOFT BLOOD PRESSURES R/T SEDATION. FAMILY PRESENT THROUGHOUT SHIFT. DENIES FURTHER CONCERNS, AGREES WITH PLAN OF CARE.
--- NOTE | 2017-06-26 18:47 | NUR ---
PATIENT REMAINS SEDATED ON VENT. GCS 3. ATTEMPTED SEDATION VACATION THIS AM, PATIENT RESPIRATIONS INCREASED TO 50S. VERSED RESTARTED AFTER 20 MINUTES OFF SEDATION. REQUIRED PRN FENTANYL X2 AND PRN ATIVAN X2 TO CONTROL RESPIRATIONS. DR BATES ORDERED REPEAT EEG FOR TOMORROW. DIALYSIS COMPLETED TODAY. LEVOPHED TITRATED DOWN TO 10 MCG/MIN AFTERWARDS. ALBUMIN GIVEN DURING DIALYSIS BY DIALYSIS NURSE. DIALYSIS CATHETER CULUTRED PRIOR TO TREATMENT, CENTRAL LINE CULTURED [address] BARRAGAN'S ORDERS. DR BATES STATED WE WILL GIVE PATIENT A FEW MORE DAYS AND CONTINUE TO ASSESS NEURO STAUTS. FAMILY AWARE AND AGREES WITH THIS PLAN. NO OTHER PERTINENT CHANGES TO PATIENT STATUS TODAY.
[2017-06-27] VITALS (9 sets, daily range): BP systolic 106–129; BP diastolic 66–84
[2017-06-27 04:24] LABS: ABSOLUTE LYMPHOCYTES 0.8 thou/uL (0.8-5.3); ABSOLUTE MONOCYTES 0.6 thou/uL (0.0-1.2); ABSOLUTE NEUTROPHILS 10.9 thou/uL (1.6-8.1); BASOPHILS 0.1 %; HEMATOCRIT 29.6 % (42.0-52.0); HEMOGLOBIN 10.2 gm/dL (14.0-18.0); LYMPHOCYTES 6.7 %; MCH 32.1 pg (26.0-34.0); MCHC 34.6 g/dL (28.0-37.0); MCV 92.8 fL (80.0-100.0); MONOCYTES 4.8 %; MPV 8.8 fl. (7.2-11.1); NUCLEATED RBCS 2 /100WBC; PLATELET COUNT* 80 thou/uL (150-400); POLYS 88.4 %; RBC 3.19 mil/uL (4.50-6.00); RDW-CV 13.6 % (10.5-14.5); WBC 12.4 thou/uL (4.0-11.0)
[2017-06-27 05:06] LABS: ALBUMIN 2.7 g/dL (3.4-5.0); CALCIUM 8.1 mg/dL (8.5-10.1); CREATININE 5.9 mg/dL (0.6-1.3); MAGNESIUM 2.7 mg/dL (1.8-2.4); PHOSPHORUS* 6.8 mg/dL (2.5-4.9); TOTAL PROTEIN 6.3 g/dL (6.4-8.2)
--- NOTE | 2017-06-27 06:34 | NUR ---
ASSUMED PATIENT CARE AT 1900. PATIENT SEDATED ON VENT. PANAMA HAT HYDRAULIC PRESS OPERATOR AND REASSMENT COMPLETED DOCUMENTED. CVP AND ART LINE REMAIN IN PLACE, MAINTAINING PRESSURE. CENTRAL LINE PATENT TO FLUIDS INFUSING. RESPIRATIONS, BLOOD PRESSURE, PULSE AND TEMP HAVE ALL DROPPED THROUGHOUT THE NIGHT AND ARE VLOSER TO NORMAL LIMITS AT TIS TIME. RIGHT PUPIL NOTED TO BE REACTIVE AT 0545 THIS AM. LEFT PUPIL REACTIVE, REMAINS SLUGGISH. SKIN TEMPERATURE MUCH IMPROVED AND MORE CONSISTEN WITH CORE TEMPERATURE AT THIS TIME. DIALYSIS TO BE DONE THIS AM. TEMPORARY SHUNT REMAINS IN PLACE. DRESSING C/D/I. WILL CONTINUE TO MONITOR.
--- NOTE | 2017-06-27 07:43 | CON ---
[facility] [address] [place] [address] CONSULTATION Name: SARAI MEJIA Room: [address] IN M.R.#: [id number] Admission: 06/22/17 Attend Phys: Donte Cabrera MD Discharge: Date of : 57 Report #: [id number] THIS REPORT FOR: //name// CC: Donte SEGALPaige DATE OF SERVICE: 06/24/2017 ATTENDING PHYSICIAN: Donte Cabrera M.D. REASON FOR EVALUATION: Gram-positive septicemia. HISTORY OF PRESENT ILLNESS: Chart reviewed, patient examined. A 62-year-old gentleman from [place] who was visiting and had cardiopulmonary arrest outside the hospital. It is uncertain, but perhaps up to 15 minutes downtime. He was resuscitated. He has been in the Intensive Care Unit, was found to have cardiac dysrhythmias, underwent code ICE as part of the evaluation, had blood cultures collected now 04/29 with Gram-positive cocci, waiting ID. Imaging suggested possible upper lobe infiltrate on chest x-ray. Urinalysis has moderate pyuria and was started empirically on broad spectrum therapy with vancomycin as well as Zosyn. At this point, he is not responsive. ALLERGIES: None known. CURRENT MEDICATIONS: Include thiamine, folic acid, midazolam, fentanyl, pantoprazole, vanco. He is on norepinephrine, ipratropium albuterol inhaler, sliding scale insulin, received some vancomycin as well. PAST MEDICAL HISTORY: Previous history of brain surgery, had cyst removed, apparently had a shunt removed that had been placed approximately 3 years ago, high cholesterol, hypertension. SOCIAL HISTORY: Smokes 2 packs a day. There is use of ethanol on a daily basis with illicit drug use. FAMILY HISTORY: Noncontributory. REVIEW OF SYSTEMS: Not obtainable. PHYSICAL EXAMINATION: GENERAL: He is undergoing rewarming during his code ICE, supine. He is on the ventilator. He is not responsive. VITAL SIGNS: Temperature currently 98, pulse 80, respirations 14, blood pressure is 89/51 that is pressor supported. SKIN: Warm now, he is cool distally. He has got mottling associated with the knees and distal [place] [address] CONSULTATION Name: SARAI MEJIA Room: [address] IN [facility]#: [id number] Admission: 06/22/17 Attend Phys: Donte Cabrera MD Discharge: Date of : 57 Report #: [id number] NECK: Appears to be supple. LUNGS: Scattered coarse breath sounds. HEART: Regular, distant appreciate a murmur. ABDOMEN: Obese, soft, distended. There are no peritoneal signs. GENITOURINARY AND RECTAL: Deferred. LABORATORY DATA: Lactic acid peaked up to 8.5, most recently it is 2.7. ABGs currently pH 7.217, pCO2 of 50.5, pO2 of 66.7, is on 100% FiO2. Chest x-ray shows cardiomegaly with extensive bilateral infiltrates. There is question of some edema, possible interspersed with pneumonia. Most recent electrolytes: Sodium 143, potassium 3.7, chloride 106, bicarb is 23, anion gap of 14, BUN and creatinine 40 and 3.0, glucose of 140. AST of 2330, ALT of 1228. Total protein 5.4, albumin of 2.5, estimated GFR of 21, prealbumin of 55. CRP of 203.1. Echo EF of 55%, aortic valve, mild sclerosis, no regurgitation, no stenosis. Mitral valve is normal in structure, no regurgitation or stenosis. Blood cultures described above. ASSESSMENT AND PLAN: Gram-positive cocci septicemia. The patient out of hospital cardiac arrest, critically ill with multiorgan failure. We will await those results. Certainly should be well covered with the current antimicrobial therapy. His elevations were accounted for and dose adjusted. His likely limiting factor is neurological status at this point. Continue to wean off support as allowed. Further narrow down antibiotics based on culture results. <ELECTRONICALLY SIGNED> By: Daniel Taveras MD 06/27/17 0743 1009 [id number] Taveras MD /nt
[2017-06-27 08:41] LABS: BE 2.3 mmol/L (-2 to +3); HCO3 24.8 mmol/L (22.0-26.0); PCO2 31.9 mmHg (35.0-45.0); pH 7.509 (7.340-7.450)
--- NOTE | 2017-06-27 11:42 | NUR ---
PATIENT'S REFUSING EEG. STATED "I DON'T NEED MORE INFORMATION. I THINK WE HAVE MADE THE DECISION." PATIENT'S CALLING IN FAMILY AND THEN THEY WILL WITHDRAWL CARE. DR CAIN NOTIFIED.
[2017-06-27 12:10] LABS: HEPATITIS B SURFACE AG Negative (Negative)
--- NOTE | 2017-06-27 12:21 | NUR ---
ICU ROUNDING: CM SPOKE TO THE RN IN-CHARGE OF THE PATIENT AND SHE INFORMS THAT DIALAYSIS HAS BEEN STOPPED. PATIENTS SPOUSE TO DISCUSS WITHDRAWING CARE. CM WILL REMAIN AVAILABLE TO ASSIST AND FOLLOW NEEDED.
--- NOTE | 2017-06-27 13:03 | NUR ---
PATIENT COMPASSIONATELY EXTUBATED AT 1255. MORPHINE GTT INCREASED FROM 2MG/HR TO 20 MG/HR FOR AIR HUNGER. , SISTER, AND 'S SISTER AT BEDSIDE.
--- NOTE | 2017-06-27 13:18 | NUR ---
MORPHINE GTT TITRATED UP TO 30 MG/HR FOR RESPIRATIONS REMAINING IN THE 30S.
--- NOTE | 2017-06-27 17:18 | NUR ---
PATIENT EXPECTEDLY AT 1615. AND OTHER FAMILY MEMEBERS PRESENT. MADE DECISIONS TO SEND BODY TO [facility] IN [place], [place]. PATIENT HAD NO JEWLERY ON BODY. AFTER LEFT, SOME PATIENT BELONGINGS FOUND INCLUDING CUT UP CLOTHING, SUNGLASSES, AND $7. ITEMS BEING MAILED BACK TO AT [place]. MTN NOTIFIED, PATIENT IS NOT CANDIDATE FOR ORGAN DONATION. ALL CONSULTS NOTIFIED. DR TORRES TO SIGN THE CERTIFICATE. LIME TRIMMER NOTIFIED. AWAITING HOME PICKUP OF BODY.
--- NOTE | 2017-06-27 18:28 | NUR ---
PATIENT LEFT FACILITY AT 1828 WITH HOME TRANSPORT TO [facility]
--- NOTE | 2017-06-30 15:28 | CON ---
[facility] [address] [place] [address] CONSULTATION Name: SARAI MEJIA Room: [address]R.#: [id number] Admission: 06/22/17 Attend Phys: Donte Cabrera MD Discharge: 06/27/17 Date of : 57 Report #: [id number] THIS REPORT FOR: //name// CC: Donte DOVER [facility] [place] DATE OF SERVICE: 06/24/2017 REQUESTING PHYSICIAN: Donte Cabrera M.D. REASON FOR CONSULTATION: Acute kidney injury. The patient is a 62-year-old white male who was admitted to the hospital on 06/22/2017. PRINCIPAL DIAGNOSIS: Status post cardiac arrest. HISTORY OF PRESENT ILLNESS: The patient is a 62-year-old white male who apparently drove all the way down here from [place] to visit family, was seen by his around 2:00 p.m. and then around 2:15 found him face down in his mobile home. He was resuscitated, apparently was prolonged resuscitation, was brought here, was found to have acute myocardial infarction, was placed in ice protocol, intubated and now his urine output is decreasing and I was consulted. PAST MEDICAL HISTORY: Significant for multiple brain surgery due to high-pressure hydrocephalus. He also is a heavy smoker. PAST MEDICAL HISTORY: Unknown. FAMILY HISTORY: Unknown. SOCIAL HISTORY: Positive for heavy smoking. REVIEW OF SYSTEMS: The patient is intubated, unresponsive. PHYSICAL EXAMINATION: GENERAL: The patient is in Intensive Care Unit, unresponsive, intubated on sedation. Urine output reported as around 1000 mL since admission, but since 7:00 a.m. this morning, there was only about 30 mL in his bag. HEENT: His pupils are dilated. LUNGS: Clear. CARDIOVASCULAR: Regular rate. ABDOMEN: Soft. LOWER EXTREMITIES: [place] [address] CONSULTATION Name: SARAI MEJIA Room: [address]#: [id number] Admission: 06/22/17 Attend Phys: Donte Cabrera MD Discharge: 06/27/17 Date of : 57 Report #: [id number] LABORATORY DATA: Serum sodium 143, potassium 3.7, chloride 106, carbon dioxide 23, BUN 40, creatinine 3.0, calcium is 6.5. His troponin was 65, AST 2333, ALT 1228. His hemoglobin is 14.1, white count initially was 28.9, down to 12.9. ABG revealed pH of 7.21, pCO2 of 50, pO2 of 66. ASSESSMENT AND PLAN: A 62-year-old man status post cardiac arrest. Apparently, he wanted to be Do Not Resuscitate, but panicked and that is why he was resuscitated initially. He was making urine, but now urine output dropped. He has an acute kidney injury. He is able to maintain his blood pressure. 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 I need to have more information from Neurology. If his neurological prognosis is grim and the family does not want to resuscitate, then I will not subject him to dialysis. On the other hand, if the patient's neurological prognosis is unclear and family wants to continue aggressive care, I will start him on SENIOR MECHANICAL DESIGN ENGINEER. We will await input from Neurology and waiting for his to arrive to ICU. Discussed this with Gregoria, his ICU nurse and with Dr. Perla, recruiting manager. This is a critical care consult and more than an hour was spent. <ELECTRONICALLY SIGNED> By: Justin Rodriguez MD 06/30/17 1528 1056 [id number] Rodriguez MD /[facility]
--- NOTE | 2017-07-08 11:44 | EEG ---
[facility] [address] [place] [address] EEG STUDY REPORT Name: SARAI MEJIA Room: [address] IN M.R.#: [id number] Admission: 06/22/17 Attend Phys: Donte Cabrera MD Discharge: 06/27/17 Date of : 57 Report #: [id number] THIS REPORT FOR: //name// CC: Donte DOVER [facility] [place] The patient is a 62-year-old male who is status post code. The patient was down for approximately 20 minutes before CPR was initiated. DESCRIPTION: The patient has been off all sedation for approximately 5 hours. The EEG demonstrates a moderate amplitude 5-6 cycle per second activity predominant over the frontal head regions. Photic stimulation was non-activating. There was no change in state during the recording. The patient did not respond to verbal or tactile stimulation. No focal abnormalities or epileptiform discharges were noted. IMPRESSION: This is an abnormal adult record. It is consistent with moderate diffuse cerebral dysfunction. No focal abnormalities or epileptiform discharges were noted during the recording. It may be of benefit to repeat the EEG in 48 hours. <ELECTRONICALLY SIGNED> By: Renay Doyle DO 07/08/17 1144 1312 1339Renay Doyle, /nt
--- NOTE | 2017-07-12 17:05 | CON ---
[facility] [address] [place] [address] CONSULTATION Name: SARAI MEJIA Room: [address] IN M.R.#: [id number] Admission: 06/22/17 Attend Phys: Donte Cabrera MD Discharge: 06/27/17 Date of : 57 Report #: [id number] THIS REPORT FOR: //name// CC: Donte AKERS DATE OF SERVICE: 06/23/2017 HISTORY OF PRESENT ILLNESS: This is a 62-year-old male patient who was evaluated by me to prognosticate this patient. This patient had a cardiac arrest first at home and then en route. He is unresponsive at the moment. He is on a cooling protocol. REVIEW OF SYSTEMS: Indicate the patient had hydrocephalus in the past. They have put shunts on him, which required multiple revisions. He has a pretty strong will as I understand from the who is also durable power of litigation attorney associate as I understand from her that he is going to be a DNR. They do not want to be aggressive. This has been his wishes prior to this happening. His shunt has been revised multiple times as I understand from the patient's . What the problem was I am not certain, but looks like there were multiple problems. His records indicate that he may have had an TN and he has cardiogenic shock and acute respiratory problem. He has hypoxic encephalopathy. Presently, he is on hypothermia protocol. I carried out 14-point review of system with the and this was his relevant 14-point review of systems PAST MEDICAL HISTORY: Positive for a shunt placement, which happened multiple times in this patient. FAMILY HISTORY: Unremarkable. SOCIAL HISTORY: He is and his is here. She indicates she is a durable power of litigation attorney associate. The patient has a history of smoking as well as drinking alcohol. PHYSICAL EXAMINATION: The patient's examination is limited. He does not have much response to the painful stimuli. Pupils are small and did not react. He does not have any reflexes. That is all in the neurology examination, which is possible. He is a very well-built individual who is on respirator. He was on the pressor as I understand from the nurses. His pulses are difficult to feel. His temperature is 93.9, pulse is 72 and blood pressure is 145/84. LABORATORY DATA: Indicate a white count of 22 and he has markedly abnormal. He has hypernatremia. He has shock liver. His troponin is 65. He did have a CT scan of the head, which did not show any acute changes. IMPRESSION: This patient is being evaluated [place] [address] CONSULTATION Name: SARAI MEJIA Room: [address] IN ..#: [id number] Admission: 06/22/17 Attend Phys: Donte Cabrera MD Discharge: 06/27/17 Date of : 57 Report #: [id number] RECOMMENDATION: I had a long talk with the patient's . I told her typically it takes several days to determine the prognosis with accuracy in patient who had undergone hypothermia protocol. In this patient the time has been increased from 3 days to 7-10 days at the minimum, some people take much longer time to prognosticate them. indicated that it was his wishes that he did not want to prolong it too much, but she wants to give it some time, how much is not clear. I talked to her that we will go ahead and get an EEG done in this patient tomorrow after he is warmed up. We can discuss with her that EEG and then she can decide if she wants us to continue to prognosticate or not. She wants to follow this plan. Dr. Doyle is industrial economics teacher for the next 3 days and will follow up this patient with you and look at the EEG and go from there. <ELECTRONICALLY SIGNED> By: Abram Taveras MD 07/12/17 1705 1835 [id number] Taveras MD /nt
== END 2017-06-27 16:15 | DRG 870 ==
LOC: M.ERS 14:49 → M.ICU 16:16 → M.TBA-ER 16:16 → M.ICU 17:25
PROVIDERS: Emergency Medicine; Internal Medicine Critical Care Medicine; Internal Medicine Nephrology; ADMIT Internal Medicine
PROC: 0BH17EZ Insertion of Endotracheal Airway into Trachea, Via Natural or Artificial Opening (ICD-10-PCS; 2017-06-22)
PROC: 5A1955Z Respiratory Ventilation, Greater than 96 Consecutive Hours (ICD-10-PCS; 2017-06-22)
PROC: 02HV33Z Insertion of Infusion Device into Superior Vena Cava, Percutaneous Approach (ICD-10-PCS; principal; 2017-06-25)
DX: A41.89 Other specified sepsis (principal); J96.01 Acute respiratory failure with hypoxia; J15.9 Unspecified bacterial pneumonia; I21.19 ST elevation (STEMI) myocardial infarction involving other coronary artery of inferior wall; J69.0 Pneumonitis due to inhalation of food and vomit; G93.41 Metabolic encephalopathy; N17.0 Acute kidney failure with tubular necrosis; J96.02 Acute respiratory failure with hypercapnia; G93.1 Anoxic brain damage, not elsewhere classified; E87.2 Acidosis; R57.0 Cardiogenic shock; Z66 Do not resuscitate; I10 Essential (primary) hypertension; E78.5 Hyperlipidemia, unspecified; F17.200 Nicotine dependence, unspecified, uncomplicated; I25.10 Atherosclerotic heart disease of native coronary artery without angina pectoris; Z79.899 Other long term (current) drug therapy; I25.2 Old myocardial infarction; Z82.49 Family history of ischemic heart disease and other diseases of the circulatory system; Z28.21 Immunization not carried out because of patient refusal